=== PATIENT | male | born 1940 | race Caucasian/White ===

== ENCOUNTER 2022-11-11 12:54 | Outpatient (CLI) | payer MEDICARE, BC ==
[~2022-11-11] VITALS: Ht 189.2 cm; Wt 77.1 kg
[2022-11-11 13:42] LABS: ALBUMIN 3.5 G/DL (3.4-5.0); ANION GAP 10 (8-16); BLOOD UREA NITROGEN 26 MG/DL (7-18); BUN/CREATININE RATIO 28.3 (5.4-32.0); CHLORIDE 106 MMOL/L (99-107); CREATININE 0.92 MG/DL (0.60-1.10); GLUCOSE 96 MG/DL (70-104); POTASSIUM 4.2 MMOL/L (3.5-5.1); SODIUM 142 MMOL/L (135-145); TOTAL CARBON DIOXIDE 26.5 MMOL/L (24-32); eGFR 79 ML/MIN
[2022-11-11] MEDS ORDERED: iohexol 350 MG/ML 50ML vial IV ONE (14:55)
[2022-11-11] MEDS ORDERED: iohexol 350MG/ML 100ml bottle IV ONE (14:55)
== END 2022-11-11 23:59 | disposition home or self-care (01) ==
LOC: RAD 12:54
PROVIDERS: ATTEND Surgery
DX: I71.43 Infrarenal abdominal aortic aneurysm, without rupture (principal); N40.0 Benign prostatic hyperplasia without lower urinary tract symptoms; K74.60 Unspecified cirrhosis of liver; I70.0 Atherosclerosis of aorta
CPT/HCPCS: 36415; 75635; 80048; J3490; Q9967